=== PATIENT | male | born 1950 | race Caucasian/White ===

== ENCOUNTER → 2020-08-20 | Outpatient (CLI) | payer OTHER, MEDICARE ==
[~2020-08-20] MED LIST: ATOR20TA58 PO; LISI10TA16 PO; OXYC1TAB15 PO; PANT40TA77 PO
== END ==
LOC: LAB 10:04
PROVIDERS: ATTEND Surgery
DX: Z01.812 Encounter for preprocedural laboratory examination (principal); K40.90 Unilateral inguinal hernia, without obstruction or gangrene, not specified as recurrent; Z20.828 Contact with and (suspected) exposure to other viral communicable diseases
CPT/HCPCS: U0003

== ENCOUNTER 2020-08-23 06:54 | Day surgery (SDC) | payer OTHER, MEDICARE ==
[~2020-08-23] VITALS: Ht 182.9 cm; Wt 86.0 kg
[~2020-08-23 06:54] MED LIST changes: +ACETAMINOPHEN 500 MG TABLET PO PRN; +BUPIVACAINE-EPI 0.25%-1:200000 MPF 30 ML VIAL. INJ ONE; -LISI10TA16 PO; +LISI10TA2 PO; -OXYC1TAB15 PO
[2020-08-23] MEDS ORDERED: LIDOCAINE 1% PF 2 ML VIAL. ID PRN (07:00)
[2020-08-23] MEDS ORDERED: HYDROmorphone 2 MG/ML VIAL IV PRN (07:00)
[2020-08-23] MEDS ORDERED: fentaNYL PF VIAL 100 MCG/2 ML VIAL IV PRN (07:00)
[2020-08-23] MEDS ORDERED: IV RINGERS,LACTATED 1000ML 1,000 ML IV SCH (07:00)
[2020-08-23] MEDS ORDERED: MORPHINE SULFATE 2 MG/ML VIAL. IV PRN (07:00)
[2020-08-23] MEDS ORDERED: PROCHLORPERAZINE 10 MG/2 ML VIAL. IV PRN (07:00)
[2020-08-23] MEDS ORDERED: ONDANSETRON PF 4 MG/2 ML VIAL. IV PRN (07:00)
[2020-08-23] MEDS ORDERED: MINERAL OIL for SURGERY 10 ML VIAL. MC ONE (07:14)
--- NOTE | 2020-08-23 07:41 | PDOC1 ---
History and Physical Date of Admission Date of Admission DATE: 08/23/20 TIME: 07:38 Identification/Chief Complaint Chief Complaint Painful bulge right groin Source Source: Patient History of Present Illness History of Present Illness 69-year-old male with complaints of a painful bulge in his right groin noticed approximately 2 months ago after lifting some heavy wood Past Medical History Cardiovascular: Hyperlipidemia Pulmonary: No pertinent hx GI: GERD Heme/Onc: No pertinent hx Hepatobiliary: No pertinent hx Psych: No pertinent hx Rheumatologic: No pertinent hx Infectious disease: No pertinent hx ENT: No pertinent hx Renal/: No pertinent hx Endocrine: Diabetes Dermatology: Psoriasis Past Surgical History Past Surgical History: Hernia Repair (Left inguinal repair) Family History Family History: No Significant Social History Smoke: No ALCOHOL: rare Drugs: None Current Medications Current Medications Current Medications Ondansetron HCl (Zofran) 4 mg PRN Q6HRS PRN IV NAUSEA/VOMITING; Start 08/23/20 at 07:00; Stop 08/24/20 at 06:59 Fentanyl Citrate (Fentanyl 2ml Vial) 25 mcg PRN Q5MIN PRN IV MILD PAIN 1-3; Start 08/23/20 at 07:00; Stop 08/24/20 at 06:59 Fentanyl Citrate (Fentanyl 2ml Vial) 50 mcg PRN Q5MIN PRN IV MODERATE TO SEVERE PAIN; Start 08/23/20 at 07:00; Stop 08/24/20 at 06:59 Morphine Sulfate (Morphine Sulfate) 1 mg PRN Q10MIN PRN IV SEVERE PAIN 7-10; Start 08/23/20 at 07:00; Stop 08/24/20 at 06:59 Ringer's Solution 1,000 ml @ 30 mls/hr Q24H IV ; Start 08/23/20 at 07:00; Stop 08/23/20 at 18:59 Lidocaine HCl (Xylocaine-Mpf 1% 2ml Vial) 2 ml PRN 1X PRN ID PRIOR TO IV START; Start 08/23/20 at 07:00; Stop 08/24/20 at 06:59 Hydromorphone HCl (Dilaudid) 0.5 mg PRN Q10MIN PRN IV SEV PAIN, Second choice; Start 08/23/20 at 07:00; Stop 08/24/20 at 06:59 Prochlorperazine Edisylate (Compazine) 5 mg PACU PRN PRN IV NAUSEA, MRX1; Start 08/23/20 at 07:00; Stop 08/24/20 at 06:59 Bupivacaine HCl/ Epinephrine Bitart (Sensorcaine-Epi 0.25%-1:[id number] Mpf) 30 ml 1X ONCE INJ ; Start 08/23/20 at 06:00; Stop 08/23/20 at 06:01; Status DC Acetaminophen (Tylenol) 1,000 mg OC PROC PRN PO PRE-OP Last administered on 08/23/20at 07:36; Start 08/23/20 at 06:00; Stop 08/23/20 at 18:00 Cefazolin Sodium/ Dextrose 50 ml @ 100 mls/hr 1X PREOP PRN IV PRIOR TO PROCEDURE; Start 08/23/20 at 06:00; Stop 08/23/20 at 18:00 Mineral Oil (Muri-Lube) 10 ml STK-MED ONCE MC ; Start 08/23/20 at 07:14; Stop 08/23/20 at 07:14; Status DC Active Scripts Active Reported Lisinopril 10 Mg Tablet 10 Mg PO DAILY Protonix (Pantoprazole Sodium) 40 Mg Tablet.dr 40 Mg PO DAILYAC Atorvastatin Calcium 20 Mg Tablet 20 Mg PO HS Allergies Allergies: Coded Allergies: No Known Drug Allergies (Unverified , 08/16/20) ROS Genitourinary: YES Other (Right inguinal pain) Physical Exam General: Alert, Oriented X3, Cooperative, No acute distress HEENT: Atraumatic, EOMI Lungs: Clear to auscultation, Normal air movement Heart: RRR, no murmurs Abdomen: Normal bowel sounds, Soft, No tenderness Male Genitals Exam: other (Right inguinal hernia) Rectal Exam: not examined Extremities: No clubbing, No edema Skin: No significant lesion Neuro: Normal speech Vitals Vitals Vital Signs Date Time Temp Pulse Resp B/P (MAP) Pulse Ox O2 Delivery O2 Flow Rate FiO2 08/23/20 07:28 98.5 99 20 96 98.5 08/23/20 07:24 177/113 Room Air VTE Prophylaxis Ordered VTE Prophylaxis Devices: Yes VTE Pharmacological Prophylaxi: Contraindicated Assessment/Plan Assessment/Plan Right inguinal hernia plan robotic assisted laparoscopic repair Justifications for Admission Other Justification SAM SILVA MD Aug 23, 2020 07:41
[2020-08-23] MEDS ORDERED: ROCURONIUM 50 MG/5 ML VIAL. ONE (07:50)
[2020-08-23] MEDS ORDERED: fentaNYL PF VIAL 100 MCG/2 ML VIAL ONE ×2 (07:51→09:11)
[2020-08-23] MEDS ORDERED: PROPOFOL 10 MG/ML (20ML) VIAL. IV ONE (08:15)
[2020-08-23] MEDS ORDERED: NEOSTIGMINE METHYLSULFATE 5 MG/5 ML SYRINGE. ONE (08:15)
[2020-08-23] MEDS ORDERED: LIDOCAINE 2% PF 5 ML VIAL. ONE (08:15)
[2020-08-23] MEDS ORDERED: DEXAMETHASONE SOD PHOS 20 MG/5 ML VIAL. ONE (08:15)
[2020-08-23] MEDS ORDERED: ONDANSETRON PF 4 MG/2 ML VIAL. ONE (08:15)
[2020-08-23] MEDS ORDERED: GLYCOPYRROLATE 1 MG/5 ML VIAL. ONE (08:16)
--- NOTE | 2020-08-23 08:57 | PDOC4 ---
Operative Note Operative Note Date: August 23, 2020 at 854 Preoperative diagnosis: Right inguinal hernia Postoperative diagnosis: Same Procedure: Robotic assisted laparoscopic right inguinal hernia repair with mesh Surgeon: Taz Specimen: None Dictation: Patient is a 69-year-old gentleman with a right inguinal hernia procedure of right inguinal hernia repair robotic assisted laparoscopic was explained to the patient detail risk benefits were also discussed including bleeding infection injury to intra-abdominal contents possible necessitating further open operations alternatives to this procedure also discussed with the patient who seemed to understand and gave both verbal and written consent to have the procedure performed. Patient was taken to the operating room placed in the supine position general anesthesia was initiated once patient was sleeping intubated was placed in low lithotomy positioning and his abdomen was prepped and draped in usual sterile fashion using ChloraPrep. An area just above the umbilicus was injected with quarter percent Marcaine with epinephrine incision was made 11 blade scalpel and a varies needle was placed within the abdomen creating pneumoperitoneum once this was complete 8 mm da Bucky port was placed and the da Bucky camera was placed within the abdomen and inspected no other ab maladies were noted was noted the had a hernia on the right side 8 mm da Bucky port was placed in the right midabdomen and an 8 mm da Bucky port was placed in the left midabdomen the da Bucky robot is brought and docked all port sites surgeon went to the robotic console using a grasper and Endo Socrates scissors the peritoneum over the right groin was incised a window was propagated with a flap being dissected inferiorly the hernia contents were reduced. A large Bard 3D max mesh for the right side was then placed over the hernia defect and the pe ritoneum was closed over the mesh with a running 2 OV lock absorbable suture. Once this complete the da Bucky robot was undocked from all port sites pneumoperitoneum was reduced all ports removed port sites were all closed with 4 subcuticular Monocryl Mastisol Steri-Strips and island dressings were applied. Patient was awakened and extubated in the operating room taken to recovery in stable condition all sponge instrument needle counts listed as correct estimated blood loss 5 mL SAM SILVA MD Aug 23, 2020 08:57
--- NOTE | 2020-08-23 08:59 | DISCH ---
DISCHARGE INSTRUCTIONS Condition on Discharge Condition on Discharge: Stable Activity After Discharge Activity Instructions for Disc: Avoid exertion Other activity instructions: No lifting more than 20 pounds for 2 weeks Diet after Discharge Diet after Discharge: Regular Wound Incision Care Other wound/incision instructi: May shower in 24 hours Contacting the DRHamilton after DC Call your doctor for: If your condition worsens Follow-Up Follow up with: Dr. Silva in 2 weeks SAM SILVA MD Aug 23, 2020 08:59
[2020-08-23] MEDS ORDERED: oxyCODONE/APAP 5/325 1 TAB TABLET PO ONE ×2 (09:00)
[2020-08-23] MEDS ORDERED: OXYC1TAB15 PO (09:13)
[2020-08-23] MEDS: fentaNYL PF VIAL 100 MCG/2 ML VIAL IV PRN ×2 (09:14→09:21)
[2020-08-23 09:40] VITALS: BP 142/88
== END 2020-08-23 10:10 | disposition home or self-care (01) ==
LOC: SURG 06:54
PROVIDERS: ATTEND Surgery
DX: K40.90 Unilateral inguinal hernia, without obstruction or gangrene, not specified as recurrent (principal); I10 Essential (primary) hypertension; E78.00 Pure hypercholesterolemia, unspecified; K21.9 Gastro-esophageal reflux disease without esophagitis; Z79.899 Other long term (current) drug therapy; Z98.890 Other specified postprocedural states; Z72.89 Other problems related to lifestyle; Z87.891 Personal history of nicotine dependence
CPT/HCPCS: 49650; C1781; J0690; J1100; J2405; J2704; J2710; J3010; J3490; J7120; S2900